=== PATIENT | female | born 1940 | race Caucasian/White ===

== ENCOUNTER 2017-01-26 19:51 | Emergency (ER) | payer OTHER ==
[2017-01-26 20:44] VITALS: BP 144/71
--- NOTE | 2017-01-26 21:49 | UC ---
Lower Extremity/Ankle HPI - HPI Summary HPI Summary: "RT ANKLE AND FOOT SWELLING SINCE STEPPING OFF A STEP STOOL 2 WKS AGO, TWISTING TYPE INJURY, NOT REALLY PAINFUL BUT MARKED STS LATERAL ANKLE AND TOP OF FOOT. " She is able to walk on it althought it is slightly painful no fevers or chills. Here with her . thinks she may have rolled her ankle as she fell. - History of Current Complaint Chief Complaint: UCLowerExtremity Stated Complaint: FALL-RT FOOT INJURY Time Seen by Provider: 01/26/17 20:48 - Allergies/Home Medications Allergies/Adverse Reactions: Allergies Allergy/AdvReac Type Severity Reaction Status Date / Time No Known Allergies Allergy Verified 01/26/17 20:34 Home Medications: Home Medications FLUoxetine CAP* [Prozac CAP*] 20 mg PO DAILY 01/26/17 [History Confirmed ] Gabapentin CAP(*) [Neurontin 300 CAP(*)] 300 mg PO BID 01/26/17 [History Confirmed 01/26/17] ValACYclovir (*) [Valtrex 500 mg (*)] 500 mg PO DAILY 01/26/17 [History Confirmed 01/26/17] amLODIPine TAB* [Norvasc 5 mg TAB*] 2.5 mg PO BEDTIME 01/26/17 [History Confirmed 01/26/17] PMH/Surg Hx/FS Hx/Imm Hx Previously Healthy: Yes Cardiovascular History: Hypertension GI/ History: Gastroesophageal Reflux Psychological History: Anxiety, Depression - Surgical History Surgical History: Yes Surgery Procedure, Year, and Place: SKIN CA -; APPENDECTOMY; TUBAL LIGATION; BASAL JOINT REPAIR- Rt HAND; LEFT knee - Family History Known Family History: Positive: Hypertension - Social History Alcohol Use: Rare Substance Use Type: None Smoking Status (MU): Never Smoked Tobacco - Immunization History Most Recent Influenza Vaccination: UTD 2016 Most Recent Tetanus Shot: UNK Most Recent Pneumonia Vaccination: UTD Review of Systems Constitutional: Negative Skin: Negative Eyes: Negative ENT: Negative Respiratory: Negative Cardiovascular: Negative Gastrointestinal: Negative Genitourinary: Negative Motor: Negative Neurovascular: Negative Musculoskeletal: Arthralgia, Edema Neurological: Negative Psychological: Negative All Other Systems Reviewed And Are Negative: Yes Physical Exam Triage Information Reviewed: Yes Appearance: Well-Appearing - very pleasant, No Pain Distress, Well-Nourished Vital Signs: Initial Vital Signs Temp 97.4 F 06/30/17 20:38 Pulse 72 01/26/17 20:38 Resp 18 01/26/17 20:38 BP 144/71 01/26/17 20:38 Pulse Ox 96 01/26/17 20:38 Vital Signs Reviewed: Yes Eye Exam: Normal ENT Exam: Normal ENT: Positive: Pharynx normal Neck exam: Normal Respiratory Exam: Normal Respiratory: Positive: Lungs clear, Normal breath sounds Cardiovascular Exam: Normal Cardiovascular: Positive: RRR, No Murmur, Pulses Normal Abdominal Exam: Normal Abdomen Description: Positive: Nontender, Soft Musculoskeletal: Positive: Other: - Right foot and ankle with moderate generalized swelling, more so in the lateral ankle. Good ROM, ambulates. no bruising. + 2 DP/PT b/l. CR brisk. Neurological Exam: Normal Psychological Exam: Normal Skin Exam: Normal Lower Extremity Course/Dx - Course Course Of Treatment: xray right foot and ankle. -Soft tissue swelling throughout although most prominent over the lateral. malleolus. Negative for fracture or malalignment at the ankle or foot. - Differential Dx/Diagnosis Differential Diagnosis/HQI/PQRI: Cellulitis, Contusion, Dislocation, Fracture ( Closed), Sprain, Strain, Tendonitis Provider Diagnoses: ankle sprain Discharge - Discharge Plan Condition: Stable Disposition: HOME Patient Education Materials: Ankle Sprain (ED) Referrals: Earl García DO [Primary Care Provider] - 1 Week Additional Instructions: Ice and rest. Jad wrap given today. good firm soled shoes.
--- NOTE | 2017-01-26 21:57 | RAD ---
Indication: Soft tissue swelling and pain lateral aspect RIGHT ankle and top of the foot following injury 2 weeks ago. Comparison: No relevant prior exams available on the [facility] PACS for comparison. Technique: AP, mortise, and lateral views RIGHT ankle. AP, lateral, and oblique views RIGHT foot. Report: Bone density appears decreased throughout. Negative for fracture or osteochondral lesion at the ankle or foot. Osteophytosis and moderate joint space narrowing and subchondral sclerosis at the first metatarsal phalangeal joint. Negative for additional arthropathic change at the foot or ankle. Diffuse soft tissue swelling most prominent over the lateral malleolus. IMPRESSION: Soft tissue swelling throughout although most prominent over the lateral malleolus. Negative for fracture or malalignment at the ankle or foot.
--- NOTE | 2017-01-26 21:57 | RAD ---
Indication: Soft tissue swelling and pain lateral aspect RIGHT ankle and top of the foot following injury 2 weeks ago. Comparison: No relevant prior exams available on the [facility] PACS for comparison. Technique: AP, mortise, and lateral views RIGHT ankle. AP, lateral, and oblique views RIGHT foot. Report: Bone density appears decreased throughout. Negative for fracture or osteochondral lesion at the ankle or foot. Osteophytosis and moderate joint space narrowing and subchondral sclerosis at the first metatarsal phalangeal joint. Negative for additional arthropathic change at the foot or ankle. Diffuse soft tissue swelling most prominent over the lateral malleolus. IMPRESSION: Soft tissue swelling throughout although most prominent over the lateral malleolus. Negative for fracture or malalignment at the ankle or foot.
== END 2017-01-26 22:19 | disposition home or self-care (01) ==
LOC: UCCORT 19:51
DX: S93.401A Sprain of unspecified ligament of right ankle, initial encounter (principal); X50.1XXA Overexertion from prolonged static or awkward postures, initial encounter
CPT/HCPCS: 99212; G0463

== ENCOUNTER 2018-07-20 10:20 | Emergency (ER) | payer OTHER ==
[2018-07-20 10:46] VITALS: BP 132/63
--- NOTE | 2018-07-20 11:24 | UC ---
Throat Pain/Nasal Scot HPI - HPI Summary HPI Summary: " Pt c/o ST X 2-3 days. Pt has had chronic cough X 4 years. Pt is currently under the care of patch sander, ENT, and GI specialists regarding her cough. - History of Current Complaint Chief Complaint: UCRespiratory Stated Complaint: SORE THROAT,COUGH Time Seen by Provider: 07/20/18 11:21 Hx Obtained From: Patient ?: No Onset/Duration: Gradual Onset, Lasting Days, Still Present Severity: Moderate Pain Intensity: 6 Cough: Nonproductive Associated Signs & Symptoms: Positive: Dysphagia - Epiglottits Risk Factors Epiglottis Risk Factors: Negative - Allergies/Home Medications Allergies/Adverse Reactions: Allergies Allergy/AdvReac Type Severity Reaction Status Date / Time No Known Allergies Allergy Verified 07/20/18 10:42 PMH/Surg Hx/FS Hx/Imm Hx Previously Healthy: Yes Respiratory History: COPD, Bronchitis - Surgical History Surgical History: Yes Surgery Procedure, Year, and Place: SKIN CA -; APPENDECTOMY; TUBAL LIGATION; BASAL JOINT REPAIR- Rt HAND; LEFT knee - Family History Known Family History: Positive: Hypertension - Social History Occupation: Retired Lives: With Family Alcohol Use: Rare Substance Use Type: None Smoking Status (MU): Former Smoker Length of Time of Smoking/Using Tobacco: ~1 PPD x 25 Years When Did the Patient Quit Smoking/Using Tobacco: ~1975 - Immunization History Most Recent Influenza Vaccination: UTD 2016 Most Recent Tetanus Shot: UNK Most Recent Pneumonia Vaccination: UTD Review of Systems All Other Systems Reviewed And Are Negative: Yes Constitutional: Positive: Fatigue Skin: Positive: Negative Eyes: Positive: Negative ENT: Positive: Sore Throat Respiratory: Positive: Cough Cardiovascular: Positive: Negative Gastrointestinal: Positive: Negative Genitourinary: Positive: Negative Motor: Positive: Negative Neurovascular: Positive: Negative Musculoskeletal: Positive: Negative Neurological: Positive: Negative Psychological: Positive: Negative Is Patient Immunocompromised?: No Physical Exam Triage Information Reviewed: Yes Appearance: Well-Appearing Vital Signs: Initial Vital Signs Temp 98.6 F 07/20/18 10:39 Pulse 80 07/20/18 10:39 Resp 24 07/20/18 10:39 BP 132/63 07/20/18 10:39 Pulse Ox 96 07/20/18 10:39 Vital Signs Reviewed: No Eye Exam: Normal ENT: Positive: Nasal congestion Dental Exam: Normal Neck exam: Normal Respiratory: Positive: Decreased breath sounds Cardiovascular Exam: Normal Musculoskeletal Exam: Normal Neurological Exam: Normal Psychological Exam: Normal Skin Exam: Normal Throat Pain/Nasal Course/Dx - Differential Dx/Diagnosis Differential Diagnosis/HQI/PQRI: Influenza, Pharyngitis, URI Discharge - Discharge Plan Referrals: Earl García DO [Primary Care Provider] -
--- NOTE | 2018-07-20 12:14 | UC ---
Throat Pain/Nasal Scot HPI - HPI Summary HPI Summary: " Pt c/o ST X 2-3 days. Pt has had chronic cough X 4 years. Pt is currently under the care of engineering officer, ENT, and GI specialists regarding her cough. - History of Current Complaint Chief Complaint: UCRespiratory Stated Complaint: SORE THROAT,COUGH Time Seen by Provider: 07/20/18 11:21 Hx Obtained From: Patient ?: No Onset/Duration: Gradual Onset, Lasting Days, Still Present Severity: Moderate Pain Intensity: 6 Cough: Nonproductive Associated Signs & Symptoms: Positive: Dysphagia - Epiglottits Risk Factors Epiglottis Risk Factors: Negative - Allergies/Home Medications Allergies/Adverse Reactions: Allergies Allergy/AdvReac Type Severity Reaction Status Date / Time No Known Allergies Allergy Verified 07/20/18 10:42 Home Medications: Home Medications Atorvastatin* [Lipitor 10 MG*] 1 tab QPM 07/20/18 [History Confirmed 07/20/18] FLUoxetine CAP* [Prozac CAP*] 40 mg QAM 07/20/18 [History Confirmed 07/20/18] Fluticasone/Vilanterol [Breo Ellipta 200-25 Mcg INH] 1 puff DAILY 07/20/18 [ History Confirmed 07/20/18] Gabapentin CAP(*) [Neurontin 100 mg CAP(*)] 1 tab BID 07/20/18 [History Confirmed 07/20/18] Pantoprazole Sodium 40 mg DAILY 07/20/18 [History Confirmed 07/20/18] ValACYclovir (*) [Valtrex 500 mg (*)] 1 tab DAILY 07/20/18 [History Confirmed ] amLODIPine TAB* [Norvasc 5 mg TAB*] 2.5 mg QPM 07/20/18 [History Confirmed 07/20] PMH/Surg Hx/FS Hx/Imm Hx Previously Healthy: Yes Respiratory History: COPD, Bronchitis - Surgical History Surgical History: Yes Surgery Procedure, Year, and Place: SKIN CA -; APPENDECTOMY; TUBAL LIGATION; BASAL JOINT REPAIR- Rt HAND; LEFT knee - Family History Known Family History: Positive: Hypertension - Social History Occupation: Retired Lives: With Family Alcohol Use: Rare Substance Use Type: None Smoking Status (MU): Former Smoker Length of Time of Smoking/Using Tobacco: ~1 PPD x 25 Years When Did the Patient Quit Smoking/Using Tobacco: ~1975 - Immunization History Most Recent Influenza Vaccination: UTD 2016 Most Recent Tetanus Shot: UNK Most Recent Pneumonia Vaccination: UTD Review of Systems All Other Systems Reviewed And Are Negative: Yes Constitutional: Positive: Fatigue Skin: Positive: Negative Eyes: Positive: Negative ENT: Positive: Sore Throat Respiratory: Positive: Cough Cardiovascular: Positive: Negative Gastrointestinal: Positive: Negative Genitourinary: Positive: Negative Motor: Positive: Negative Neurovascular: Positive: Negative Musculoskeletal: Positive: Negative Neurological: Positive: Negative Psychological: Positive: Negative Physical Exam Triage Information Reviewed: Yes Appearance: Well-Appearing Vital Signs: Initial Vital Signs Temp 98.6 F 07/20/18 10:39 Pulse 80 07/20/18 10:39 Resp 24 07/20/18 10:39 BP 132/63 07/20/18 10:39 Pulse Ox 96 07/20/18 10:39 Vital Signs Reviewed: No Eye Exam: Normal Dental Exam: Normal Neck exam: Normal Respiratory: Positive: Decreased breath sounds Cardiovascular Exam: Normal Musculoskeletal Exam: Normal Neurological Exam: Normal Psychological Exam: Normal Skin Exam: Normal Diagnostics - Laboratory Diagnostic Studies Completed/Ordered: RAPID STREP: NEGATIVE Throat Pain/Nasal Course/Dx - Differential Dx/Diagnosis Differential Diagnosis/HQI/PQRI: Influenza, Pharyngitis, URI Provider Diagnosis: Viral syndrome, Sore throat (viral) Discharge - Sign-Out/Discharge Documenting (check all that apply): Patient Departure All imaging exams completed and their final reports reviewed: No Studies - Discharge Plan Condition: Stable Disposition: HOME Patient Education Materials: Viral Syndrome (ED), Pharyngitis (ED) Referrals: Earl García DO [Primary Care Provider] - As Soon As Possible Additional Instructions: PLEASE FOLLOW UP WITH YOUR PCP, ENT, MARBLE FINISHER AND INVESTIGATIVE AGENT NEEDED. YOUR RAPID STREP TEST WAS NEGATIVE AT TODAY'S VISIT. - Billing Disposition and Condition Condition: STABLE Disposition: Home - Attestation Statements Provider Attestation: I was available for consult. This patient was seen by the AHMET. The patient was not presented to, seen by, or examined by me. EK
== END 2018-07-20 12:25 | disposition home or self-care (01) ==
LOC: UCCORT 10:20
DX: B34.9 Viral infection, unspecified (principal); J02.8 Acute pharyngitis due to other specified organisms; Z87.891 Personal history of nicotine dependence
CPT/HCPCS: 87651; 99211; G0463

== ENCOUNTER 2018-09-18 18:17 | Emergency (ER) | payer MEDICARE, OTHER ==
--- OUTSIDE RECORDS SUMMARY | 2018-09-18 18:56 | XMS REPORT | Continuity of Care Document ---
:1940 External Reference #:[id number] Author Name Ronn Shields MD Address [address] [place] [address] Care Team Providers Name Role Phone David Bradshaw MD Care Team Information Rail Car Driver Unavailable Earl García, Primary Care Physician Unavailable Payers Date Identification Numbers Payment Provider Subscriber Policy Number: [id number] Alona Jaquez PayID: [id number] [address] [address] [place] [address] Advance Directives Description No Information Available Problems Date Description Provider Status Onset: 09/10/2018 Essential hypertension Ronn Shields MD Active Onset: 09/10/2018 Pure hypercholesterolemia Ronn Shields MD Active Onset: 09/10/2018 Uncomplicated severe persistent Ronn Shields MD Active asthma Onset: 09/10/2018 Allergic rhinitis Ronn Shields MD Active Onset: 09/10/2018 Allergic rhinitis due to pollen Ronn Shields MD Active Family History Description No Information Available Social History Type Date Description Comments Sex Unknown Smoke-Free Home is smoke-free Tobacco Use Start: Unknown Patient smoking status is unknown Smoking Status Reviewed: 09/10/18 Patient smoking status is unknown Allergies, Adverse Reactions, Alerts Date Description Reaction Status Severity Comments 09/10/2018 Lisinopril Active Medications Medication Date Status Form Strength Qnty SIG Indications Ordering Provider Fluticasone 09/10 Active Suspension 50mcg/Act 16gm spray 1 J30.1 Christopher sprays in Melinda Shields MD each nostril bid Azelastine 09/10 Active Solution 137mcg/Sp 30ml one spray J30.1 Christopher HCL (Nasal) /2018 ray each Melinda Shields MD nostril twice daily Asmanex HFA 09/10 Active Aerosol 200mcg/Ac 13gm 2 puff J30.1 oph t twice a day Melinda Shields MD Ventolin HFA 09/10 Active Aerosol 108(90Bas 16gm inhale 2 J30.1 oph e) puffs by Melinda Shields MD mcg/Act inhalation route every 4 hours as needed Xyzal Allergy 09/10 Active Tablets 5mg 30tab take 1 J30.1 Christopher 24HR s tablet (5 Melinda Shields MD mg) by oral route once daily as needed Azithromycin Active Tablets 250mg take 2 Unknown /0000 tablets by mouth on day 1 in one dose then 1 tablet on days 2 through 5 Amlodipine Active Tablets 2.5mg [place], Besylate /0000 WILFREDO Veag Fluoxetine Active Capsules 40mg Carlene, HCL /0000 WILFREDO Vega Cheratussin Active Syrup 100-10mg/ take 5 Unknown ac /0000 5ML milliliters by mouth every 6 hours if needed for cough MDD 20MLS Valacyclovir Active Tablets 500mg take 1 Unknown HCL /0000 tablet by mouth once daily Ventolin HFA Active Aerosol 108(90Bas [place], /0000 e) WILFREDO Vega mcg/Act Albuterol Active Nebulizer (2.5mg/3M inhale Unknown Sulfate /0000 L) 0.083% contents of 1 vial in nebulizer every 4 to 6 hours if needed for wheezing Breo Ellipta Active Aerosol 200-25mcg inhale one Unknown /0000 /Inh puff once a day Fluticasone Active Suspension 50mcg/Act spray 2 Unknown Propionate /0000 sprays in each nostril daily Ipratropium Active Solution 0.06% Unknown [place] /0000 Azelastine Active Solution 0.1% 2 sprays Unknown HCL (Nasal) /0000 each nostril twice a day as needed Pantoprazole Active Tablets DR 40mg Unknown Sodium /0000 Atorvastatin Active Tablets 10mg Unknown Calcium /0000 Fluoxetine Active Capsules 40mg Unknown HCL /0000 Levofloxacin 00/00 Hx Tablets 750mg take 1 Unknown /0000 tablet by - mouth once 09/10 daily for 5 days Immunizations Description No Information Available Vital Signs Description No Information Available Results Test Date Facility Test Result H/L Range Note .CBC Auto Diff 09/10/2018 [facility]Other <pending> [address] [facility] [place] [address] [phone] Laboratory test 09/10/2018 [facility] Ige Total <pending> finding [address] [place] [address] [phone] Order 09/10/2018 [facility] Inhaler <pending> Training-Patient Demonstrates Competency Nitric Oxide <pending> PFT Supplies <pending> PFT With Bronchodilator <pending> Skin Test Seasonal and Environmental <pending> Procedures Date Code Description Status 09/10/2018 25779 Nitric Oxide Gas Determination Completed 09/10/2018 48879 Allergy Tests Percutaneous W/ Allergenic Extracts Completed 09/10/2018 05755 Demonstration/Eval,Of Patient Utilization Of Completed Aerosol,Nebulizer 09/10/2018 22824 Bronchodilation Responsiveness Spirometry Pre/Post Completed Bronchodil Adm Encounters Description No Information Available Plan of Treatment 09/10/2018 - Ronn Shields MDJ30.1 Allergic rhinitis due to pollenNew Medication:Fluticasone Propionate 50 mcg/Act - spray 1 sprays in each nostril bidAzelastine HCL (Nasal) 137 mcg/[place] - one spray each nostril twice dailyAsmanex HFA 200 mcg/Act - 2 puff twice a dayVentolin HFA 108(90 Base) mcg/ Act - inhale 2 puffs by inhalation route every 4 hours as neededXyzal Allergy 24HR 5 mg - take 1 tablet (5 mg) by oral route once daily as ixgqobC74.89 Other allergic dptriucxP67.50 Severe persistent asthma, uncomplicated
--- OUTSIDE RECORDS SUMMARY | 2018-09-18 18:56 | XMS REPORT | Continuity of Care Document ---
:1940 External Reference #:[id number] Author Name Brianna Elizabeth Care Team Providers Name Role Phone Earl García, Care Team Information Sagger Preparer Unavailable Earl García, Primary Care Physician Unavailable Payers Date Identification Numbers Payment Provider Subscriber Policy Number: [id number] Javierna Nelly Jaquez PayID: [id number] [address] [address] [place] [address] Advance Directives Description No Information Available Problems Description No Information Family History Description No Information Available Social History Type Date Description Comments Sex Unknown Allergies, Adverse Reactions, Alerts Date Description Reaction Status Severity Comments 09/10/2018 Lisinopril Active Medications Medication Date Status Form Strength Qnty SIG Indications Ordering Provider Azithromycin / Active Tablets 250mg take 2 Unknown 0000 tablets by mouth on day 1 in one dose then 1 tablet on days 2 through 5 Amlodipine / Active Tablets 2.5mg [place], Besylate 0000 WILFREDO Vega Fluoxetine HCL / Active Capsules 40mg Carlene, 0000 WILFREDO Vega Cheratussin ac / Active Syrup 100-10mg/ take 5 Unknown 0000 5ML milliliters by mouth every 6 hours if needed for cough MDD 20MLS Valacyclovir / Active Tablets 500mg take 1 Unknown HCL 0000 tablet by mouth once daily Ventolin HFA / Active Aerosol 108(90Bas Carlene, 0000 e) urban Vega/Riya VILLALOBOS Albuterol / Active Nebulizer (2.5mg/3M inhale Unknown Sulfate 0000 L) 0.083% contents of 1 vial in nebulizer every 4 to 6 hours if needed for wheezing Breo Ellipta / Active Aerosol 200-25mcg inhale one Unknown 0000 /Inh puff once a day Fluticasone / Active Suspension 50mcg/Act spray 2 Unknown Propionate 0000 sprays in each nostril daily Ipratropium / Active Solution 0.06% Unknown [place] 0000 Azelastine HCL / Active Solution 0.1% 2 sprays Unknown (Nasal) 0000 each nostril twice a day as needed Pantoprazole / Active Tablets DR 40mg Unknown Sodium 0000 Atorvastatin / Active Tablets 10mg Unknown Calcium 0000 Fluoxetine HCL / Active Capsules 40mg Unknown 0000 Levofloxacin / Hx Tablets 750mg take 1 Unknown 0000 - tablet by 09/10/ mouth once 2019 daily for 5 days Immunizations Description No Information Available Vital Signs Description No Information Available Results Description No Information Available Procedures Description No Information Available Encounters Description No Information Available Plan of Treatment No Information Available
--- OUTSIDE RECORDS SUMMARY | 2018-09-18 18:59 | XMS REPORT | Continuity of Care Document ---
:1940 External Reference #:[id number] Author Name Crispin Dhillon MD Address [address] [place] [address] Care Team Providers Name Role Phone Fredy Hill MD Care Team Information [employer] Unavailable Earl García DO Primary Care Physician Unavailable Payers Type Date Identification Numbers Payment Provider Subscriber Policy Number: [id number] [employer] Nelly Jaquez PayID: [id number] [address] [place] [address] Effective: 2008 Policy Number: [id number] [facility] Nelly Jaquez Expires: 2018 Group Number: [id number] [address] PayID: [id number] [place] [address] Expires: 2008 Policy Number: [id number] [facility] [place]ID: [id number] [address] [place] [address] Advance Directives Description No Information Available Problems Description No Information Family History Date Family Member(s) Problem(s) Comments Father Colon Cancer Father due to Cancer () Father due to Heart Disease () Mother Pancreatic Cancer Mother due to Cancer () Mother due to Heart Disease () Social History Type Date Description Comments Sex Unknown Marital Status Lives With Alone Home Environment Lives Alone Diet Patient follows no dietary restrictions Occupation Retired Work Status Retired ADL's/IADL's Independent with all ADL's Tobacco Use Start: Unknown End: Quit 1974 Unknown ETOH Use Denies alcohol use Recreational Drug Use Never Used Drugs Tobacco Use Start: Unknown End: Patient is a former smoker Unknown Smoking Status Reviewed: 08/28/18 Patient is a former smoker Exercise Type/Frequency Does not exercise Allergies, Adverse Reactions, Alerts Description No Known Drug Allergies Medications Medication Date Status Form Strength Qnty SIG Indications Ordering Provider Gabapentin 08/28 Active Capsules 100mg 180ca take 3 J41.0 Kheti, ps tablets twice MD Crispin a day. Miralax 04/24 Active Powder 3350NF 1020u 1 tablespoon Juan /2017 nits with large , Rey, glass of water every day Fluoxetine HCL Active Tablets 20mg 1 by mouth Unknown /0000 every day before meal Amlodipine Active Tablets 2.5mg 1 by mouth Unknown Besylate / every day Valacyclovir Active Tablets 500mg 1 by mouth Unknown HCL /0000 every day Fish Oil Active Capsules 1200mg 1 po daily Unknown Maximum /0000 Strength Garlic Oil Active Capsules 500mg 1 po daily Unknown /0000 Multi Active Chewtabs 1mg 1 by mouth Unknown Vitamin/Fluori /0000 every day de Vitamin E Active Capsules 100Unit 1 po daily Unknown / Vitamin C Active Capsules 500-400mg 1 by mouth Unknown /0000 -Unit every day W/Vitamin E Sucralfate Active Tablets 1gm 1 by mouth Unknown /0000 four times a day prn Atorvastatin Active Tablets 10mg 1 by mouth Unknown Calcium /0000 every day Vitamin B 12 Active Lozenges 100mcg 1 by mouth Unknown /0000 every day Vitamin D Active Tablets 1000Unit 1 by mouth Unknown (Cholecalcifer /0000 every day ol) Loratadine Active Tablets 10mg 1 by mouth Unknown /0000 every day Pantoprazole Active Tablets DR 40mg 1 by mouth Unknown Sodium /0000 bid Triamcinolone Active Cream 0.1% apply to Unknown Acetonide /0000 affected area On Chest twice a day For No Longer Than 10 Days Breo Ellipta Active Aerosol 200-25mcg 1puff daily Dah, /0000 /Inh Lux GAMBINO Ipratropium Active Solution 0.06% instill 2 Unknown [place] /0000 sprays into each nostril once daily Montelukast Active Tablets 10mg one daily Unknown Sodium /0000 Azelastine HCL Active Solution 0.1% instill 2 Unknown (Nasal) /0000 sprays into each nostril daily Neurontin 11/08 Hx Capsules 100mg 120ca Take 2 Kheti, /2018 ps tablets in MD Crispin - the morning 08/28 and 2 in the evning. Advair Diskus 08/16 Hx Aerosol 500-50mcg 60uni take 1 puff J82 /Dose ts twice daily. MD Crispin rinse mouth after use. Guaifenesin-Co 08/16 Hx Solution 100-10mg/ 118ml take 5ml J82 5ML every 6 hours MD Crispin as needed for cough. Dulcolax 04/[address] 5mg 7tabs 1 tab by Juan mouth every , Rey, day westley GREWAL night as needed Induced Sputum 09/04 Hx Please check J41.0 Tono sputum cell MD Crispin count with differential including eosinophil percentage. Neomycin/Polym 08/02 Hx Suspension 3.5-99648 5ml 1 drop both H04.123 dash Griffith/Dexametha /2016 -0.1 eyes three MD Rey sone - times daily 08/30 for 7 days Flovent Diskus 05/10 Hx Aerosol 100mcg/Bl 180un 1 puff twice J41.0 ist its a day MD Crispin Claritin 05/10 Hx Tablets 10mg 30tab take 1 tablet J30.89 s daily prn MD Crispin - 11/08 Gabapentin 05/26 Hx Capsules 300mg 180ca take 1 R05 ps capsule twice MD Crispin - daily. 11/08 Simvastatin Hx Tablets 10mg 1 by mouth Unknown /0000 every day Clemastine Hx Tablets 2.68mg 1 by mouth Unknown Fumarate /0000 daily Famvir Hx Tablets 500mg 1 by mouth Unknown /0000 three times a day Vitamin B 12 Hx Lozenges 100mcg 1 by mouth Unknown /0000 every day Vitamin B1 Hx Tablets 100mg 1 by mouth Unknown /0000 every day Advair Diskus Hx Aerosol 100-50mcg inhale one Unknown /0000 /Dose puff by mouth twice a day Oxycodone HCL Hx Tablets 10mg 1 every 4 h Unknown /0000 by mouth as needed pain Xarelto Hx Tablets 10mg 1 by mouth Unknown daily Omeprazole Hx Capsules DR 40mg 90cap take 1 tablet Kheti, s once daily. MD Crispin Dymista Hx Suspension 137-50mcg Unknown /Act Furosemide Hx Tablets 20mg 1 by mouth Unknown every day as - needed 04/30 Buspirone HCL Hx Tablets 7.5mg García, DO Earl Prednisone Hx Tablets 10mg Take 4 Unknown Tablets By Mouth Daily For 3 Days, 3 Tablets Daily For 3 D... (Refer To Prescription Notes). Azithromycin Hx Tablets 250mg take 2 Unknown tablets by mouth on day 1 in one dose then 1 tablet on days 2 through 5 Medications Administered in Office Medication Date Status Form Strength Qnty SIG Indications Ordering Provider Depomedrol Administered Injection Jae, 40mg/1cc Eliot Underwood MD (methylprednis olone acetate) Depomedrol Administered Injection Jae, 40mg/1cc 008 Edilia Underwood MD (methylprednis olone acetate) Depo-Medrol Administered Injection Jae, 20mg 007 Edilia Underwood MD Depomedrol Administered Injection Jae, 40mg/1cc Ady Underwood MD (methylprednis olone acetate) Immunizations Description No Information Available Vital Signs Date Vital Result Comment 08/28/2018 3:42pm BP Systolic Sitting Left Arm 132 mmHg BP Diastolic Sitting Left Arm 80 mmHg Body Temperature 98.0 F Heart Rate 83 /min Respiratory Rate 18 /min Height 63 inches 5'3" Weight 186.00 lb BMI (Body Mass Index) 32.9 kg/m2 BSA (Body Surface Area) 1.87 m2 [place] body weight in kilograms 52 kg O2 % BldC Oximetry 94 % 07/24/2018 11:02am BP Systolic Sitting Left Arm 132 mmHg BP Diastolic Sitting Left Arm 84 mmHg Heart Rate 74 /min Respiratory Rate 16 /min Height 63 inches 5'3" Weight 183.00 lb BMI (Body Mass Index) 32.4 kg/m2 BSA (Body Surface Area) 1.86 m2 [place] body weight in kilograms 52 kg O2 Saturation Level with Exercise 93 % 04/30/2018 4:03pm BP Systolic 121 mmHg BP Diastolic 79 mmHg Heart Rate 80 /min Height 63 inches 5'3" Weight 180.00 lb BMI (Body Mass Index) 31.9 kg/m2 BSA (Body Surface Area) 1.85 m2 [place] body weight in kilograms 52 kg O2 % BldC Oximetry 95 % 04/09/2018 8:42am BP Systolic Sitting Left Arm 112 mmHg BP Diastolic Sitting Left Arm 74 mmHg Heart Rate 64 /min Respiratory Rate 18 /min Height 63 inches 5'3" Weight 182.00 lb BMI (Body Mass Index) 32.2 kg/m2 BSA (Body Surface Area) 1.86 m2 [place] body weight in kilograms 52 kg O2 % BldC Oximetry 95 % Ora 03/21/2018 1:09pm BP Systolic Sitting Left Arm 120 mmHg BP Diastolic Sitting Left Arm 72 mmHg Heart Rate 74 /min Respiratory Rate 16 /min Height 63 inches 5'3" Weight 178.00 lb BMI (Body Mass Index) 31.5 kg/m2 BSA (Body Surface Area) 1.84 m2 [place] body weight in kilograms 52 kg 11/08/2017 2:31pm BP Systolic Sitting Left Arm 146 mmHg BP Diastolic Sitting Left Arm 82 mmHg Heart Rate 80 /min Respiratory Rate 16 /min Height 63 inches 5'3" Weight 183.00 lb BMI (Body Mass Index) 32.4 kg/m2 BSA (Body Surface Area) 1.86 m2 [place] body weight in kilograms 52 kg O2 % BldC Oximetry 94 % 08/16/2017 3:40pm BP Systolic Sitting Right Arm 102 mmHg BP Diastolic Sitting Right Arm 70 mmHg Heart Rate 90 /min Respiratory Rate 22 /min Height 63 inches 5'3" Weight 180.00 lb BMI (Body Mass Index) 31.9 kg/m2 BSA (Body Surface Area) 1.85 m2 [place] body weight in kilograms 52 kg O2 % BldC Oximetry 98 % room air 05/08/2017 2:23pm BP Systolic Sitting Left Arm 96 mmHg BP Diastolic Sitting Left Arm 60 mmHg Heart Rate 81 /min Respiratory Rate 16 /min Height 63 inches 5'3" Weight 180.00 lb BMI (Body Mass Index) 31.9 kg/m2 BSA (Body Surface Area) 1.85 m2 [place] body weight in kilograms 52 kg O2 % BldC Oximetry 96 % Ora 12/28/2016 2:26pm BP Systolic Sitting Left Arm 130 mmHg BP Diastolic Sitting Left Arm 82 mmHg Heart Rate 69 /min Respiratory Rate 16 /min Height 63 inches 5'3" Weight 179.00 lb BMI (Body Mass Index) 31.7 kg/m2 BSA (Body Surface Area) 1.84 m2 [place] body weight in kilograms 52 kg O2 % BldC Oximetry 95 % Room air 08/31/2016 3:57pm BP Systolic Sitting Left Arm 124 mmHg BP Diastolic Sitting Left Arm 79 mmHg Heart Rate 76 /min Respiratory Rate 16 /min Height 63 inches 5'3" Weight 183.00 lb BMI (Body Mass Index) 32.4 kg/m2 BSA (Body Surface Area) 1.86 m2 O2 % BldC Oximetry 96 % 05/10/2016 1:48pm BP Systolic Sitting Left Arm 132 mmHg BP Diastolic Sitting Left Arm 90 mmHg Heart Rate 79 /min Height 63 inches 5'3" Weight 183.00 lb BMI (Body Mass Index) 32.4 kg/m2 BSA (Body Surface Area) 1.86 m2 O2 % BldC Oximetry 94 % 11/29/2015 2:56pm BP Systolic Sitting Right Arm 112 mmHg BP Diastolic Sitting Right Arm 70 mmHg Heart Rate 71 /min Respiratory Rate 16 /min Height 63 inches 5'3" Weight 186.00 lb BMI (Body Mass Index) 32.9 kg/m2 BSA (Body Surface Area) 1.87 m2 O2 % BldC Oximetry 98 % 06/29/2015 1:41pm BP Systolic Sitting Left Arm 112 mmHg BP Diastolic Sitting Left Arm 84 mmHg Heart Rate 89 /min Respiratory Rate 18 /min Height 63 inches 5'3" Weight 184.00 lb BMI (Body Mass Index) 32.6 kg/m2 BSA (Body Surface Area) 1.87 m2 O2 % BldC Oximetry 95 % 05/26/2015 12:55pm BP Systolic Sitting Left Arm 112 mmHg BP Diastolic Sitting Left Arm 72 mmHg Heart Rate 75 /min Respiratory Rate 18 /min Height 62 inches 5'2" Weight 186.00 lb BMI (Body Mass Index) 34.0 kg/m2 BSA (Body Surface Area) 1.85 m2 O2 % BldC Oximetry 95 % Results Test Date Facility Test Result H/L Range Note WBC # Bld Auto N2N/CCD Import WBC # Bld Auto 16.7 High 3.1- 10.7 8 Serum sodium N2N/CCD Import Serum sodium 138 136-145 measurement 8 measurement Serum or plasma N2N/CCD Import Serum or plasma 25 High 7-18 urea nitrogen 8 urea nitrogen measurement measurement (mass/vo (mass/volume) Serum or plasma N2N/CCD Import Serum or plasma 84 74-106 glucose 8 glucose measurement measurement (mass/volume) (mass/volume) Serum or plasma N2N/CCD Import Serum or plasma 0.7 0.6-1.3 creatinine 8 creatinine measurement measurement (mass/volum (mass/volume) Serum or plasma N2N/CCD Import Serum or plasma 8.3 Low 8.5- 10.1 calcium 8 calcium measurement measurement (mass/volume) (mass/volume) Serum carbon N2N/CCD Import Serum carbon 33 High 21-32 dioxide 8 dioxide measurement measurement RDW RBC Auto-Rto N2N/CCD Import RDW RBC Auto-Rto 14.2 11.7- 14.4 8 Potassium N2N/CCD Import Potassium 3.9 3.5-5.1 SerPl-sCnc 8 SerPl-sCnc Chloride N2N/CCD Import Chloride 102 98-107 SerPl-sCnc 8 SerPl-sCnc Blood hemoglobin N2N/CCD Import Blood hemoglobin 12.7 11.6- 15.8 measurement 8 measurement (mass/volume) (mass/volume) Blood N2N/CCD Import Blood 4.00 3.90-5.40 erythrocytes 8 erythrocytes automated count automated count (number/volume) (number/volume) BUN/Creat SerPl N2N/CCD Import BUN/Creat SerPl 35.7 8 Automated N2N/CCD Import Automated 98.8 80.9-99.0 erythrocyte mean 8 erythrocyte mean corpuscular corpuscular volume volume Automated N2N/CCD Import Automated 32.2 30.8-34.3 erythrocyte mean 8 erythrocyte mean corpuscular corpuscular hemoglobin hemoglobin concentration measurement (mass/volume) Automated N2N/CCD Import Automated 31.8 25.9-32.7 erythrocyte mean 8 erythrocyte mean corpuscular corpuscular hemoglobin hemoglobin (mass per erythrocyte) CBC [facility] White Blood Count 16.7 K/uL High 3.1-10.7 1 8 [address] [place], [place] [address] [phone] Red Blood Count 4.00 M/uL N 3.90-5.40 Hemoglobin 12.7 gm/dL N 11.6-15.8 Hematocrit 39.5 % N 36.0-46.1 Mean Cell Volume 98.8 fl N 80.9-99.0 Mean Corpuscular HGB 31.8 pg N 25.9-32.7 Mean Corpuscular HGB Conc 32.2 g/dL N 30.8-34.3 Platelet Count 384 K/uL High 155-360 Red Cell Distri Width %CV 14.2 % N 11.7-14.4 Mean Platelet Volume 8.9 fL N 8.9-12.4 Basic Metabolic Panel 08/11/2017 [facility] Glucose 84 mg/dL N 74-106 [address] [place], [place] [id number] [phone] BUN 25 mg/dL High 7-18 Creatinine 0.7 mg/dL N 0.6-1.3 Glom Filtration Rate, Estimate >60 mL/min >60 If >60 mL/min >60 2 BUN/Creat 35.7 ratio Sodium 138 mmol/L N 136-145 Potassium 3.9 mmol/L N 3.5-5.1 Chloride 102 mmol/L N 98-107 Carbon Dioxide 33 mmol/L High 21-32 Anion Gap 3 mEq/L Low 8-16 Calcium 8.3 mg/dL Low 8.5-10.1 Automated blood 08/11/2017 N2N/CCD Import Automated blood 8.9 8.9-12.4 platelet mean platelet mean volume measurement volume measurement Automated blood 08/11/2017 N2N/CCD Import Automated blood 384 High 155- 360 platelet count platelet count Automated blood 08/11/2017 N2N/CCD Import Automated blood 39.5 36.0- 46.1 hematocrit (volume hematocrit fraction) (volume fraction) Anion Gap 08/11/2017 N2N/CCD Import Anion Gap 3 Low 8-16 SerPl-sCnc SerPl-sCnc Basic Metabolic 08/10/2017 [facility] Glucose 109 mg/dL High 74-106 Panel [address] [place] [address] [phone] BUN 24 mg/dL High 7-18 Creatinine 0.8 mg/dL N 0.6-1.3 Glom Filtration Rate, Estimate >60 mL/min >60 If >60 mL/min >60 3 BUN/Creat 30.0 ratio Sodium 142 mmol/L N 136-145 Potassium 4.5 mmol/L 3.5-5.1 Chloride 104 mmol/L N 98-107 Carbon Dioxide 32 mmol/L N 21-32 Anion Gap 6 mEq/L Low 8-16 Calcium 8.3 mg/dL Low 8.5-10.1 CBC 08/10/2017 [facility] White Blood Count 15.4 K/uL High 3.1-10.7 [address] [place] [address] [phone] Red Blood Count 3.81 M/uL Low 3.90-5.40 Hemoglobin 12.0 gm/dL N 11.6-15.8 Hematocrit 37.5 % 36.0-46.1 Mean Cell Volume 98.4 fl N 80.9-99.0 Mean Corpuscular HGB 31.5 pg N 25.9-32.7 Mean Corpuscular HGB Conc 32.0 g/dL N 30.8-34.3 Platelet Count 374 K/uL High 155-360 Red Cell Distri Width %CV 14.3 % N 11.7-14.4 Mean Platelet Volume 9.0 fL N 8.9-12.4 Unloinc 08/08/2017 N2N/CCD Import Unloinc See Note 4 RDW RBC Auto 08/08/2017 N2N/CCD Import RDW RBC Auto 50.4 High 3-47 Neutrophils/leuk 08/08/2017 N2N/CCD Import Neutrophils/marisa 77.3 High 40.4 -72. NFr Bld Auto k NFr Bld Auto 8 Basic Metabolic 08/08/2017 [facility] Glucose 136 mg/dL High 74-106 Panel [address] [place] [address] [phone] BUN 26 mg/dL High 7-18 Creatinine 0.9 mg/dL N 0.6-1.3 Glom Filtration Rate, Estimate >60 mL/min >60 If >60 mL/min >60 5 BUN/Creat 28.8 ratio Sodium 140 mmol/L N 136-145 Potassium 3.6 mmol/L N 3.5-5.1 Chloride 103 mmol/L N 98-107 Carbon Dioxide 27 mmol/L N 21-32 Anion Gap 10 mEq/L N 8-16 Calcium 8.6 mg/dL N 8.5-10.1 Automated blood 08/08/2017 N2N/CCD Import Automated blood 0.01 0.0-0.1 basophil count basophil count (count/volume) (count/volume) Automated blood 08/08/2017 N2N/CCD Import Automated blood 0.00 0.0-0.5 eosinophil count eosinophil count Automated blood 08/08/2017 N2N/CCD Import Automated blood 1.76 1.0-4.0 lymphocyte count lymphocyte count (number/volume) (number/volume) Basophils/leuk NFr 08/08/2017 N2N/CCD Import Basophils/leuk NFr 0.1 0.0- 1.1 Bld Auto Bld Auto Blood monocytes 08/08/2017 N2N/CCD Import Blood monocytes 1.83 High 0.3- 0.9 automated count automated count (number/volume) (number/volume) Neutrophils # Bld 08/08/2017 N2N/CCD Import Neutrophils # Bld 12.25 High 1.8-7.0 Auto Auto Monocytes/leuk NFr 08/08/2017 N2N/CCD Import Monocytes/leuk NFr 11.5 4.3 -13.2 Bld Auto Bld Auto Lymphocytes/leuk 08/08/2017 N2N/CCD Import Lymphocytes/leuk 11.1 Low 20.0 -42.0 NFr Bld Auto NFr Bld Auto Eosinophil/leuk NFr 08/08/2017 N2N/CCD Import Eosinophil/leuk 0.0 0.0- 6.6 Bld Auto NFr Bld Auto CBC 08/07/2017 [facility] White Blood Count 16.9 High 3.1-10.[address] K/[place] [address] [phone] Red Blood Count 4.23 M/uL N 3.90-5.40 Hemoglobin 13.3 gm/dL N 11.6-15.8 Hematocrit 41.6 % 36.0-46.1 Mean Cell Volume 98.3 fl N 80.9-99.0 Mean Corpuscular HGB 31.4 pg N 25.9-32.7 Mean Corpuscular HGB Conc 32.0 g/dL N 30.8-34.3 Platelet Count 396 K/uL High 155-360 Red Cell Distri Width %CV 14.5 % High 11.7-14.4 Mean Platelet Volume 9.7 fL N 8.9-12.4 Basic Metabolic Panel 08/07/2017 [facility] Glucose 175 mg/dL High 74-[address] [place], [place] [id number] [phone] BUN 23 mg/dL High 7-18 Creatinine 1.1 mg/dL N 0.6-1.3 Glom Filtration Rate, Estimate 51 mL/min >60 If >60 mL/min >60 6 BUN/Creat 20.9 ratio Sodium 141 mmol/L N 136-145 Potassium 3.6 mmol/L N 3.5-5.1 Chloride 104 mmol/L N 98-107 Carbon Dioxide 25 mmol/L N 21-32 Anion Gap 12 mEq/L N 8-16 Calcium 9.3 mg/dL N 8.5-10.1 Pertussis PCR 08/06/2017 [facility] Bordetella Negative Negative [address] Pertussis Dna [place], [place] [id number] [phone] Bordetella parapertussis Dna Negative Negative 7 Bordetella 08/06/2017 N2N/CCD Import Bordetella Negative Negative parapertussis Dna parapertussis assay by PCR Dna assay by PCR Bordetella 08/06/2017 N2N/CCD Import Bordetella Negative Negative pertussis pertussis detection by PCR detection by PCR Bordetella 08/06/2017 [facility] B. Pertussis IgG 2.25 index High 0.00-0.94 8 Pertussis,Igg, QT [address], [place], [place] [id number] [phone] Serum Bordetella 08/06/2017 N2N/CCD Import Serum Bordetella 2.25 High 0.00-0.94 pertussis IgG pertussis IgG antibody assay antibody assay (uni (units/volume) Bordetella 08/06/2017 [facility] B. Pertussis IgM < 1.0 index 0.0-0.9 9 Pertussis,Igm [address], [place] [address] [phone] Serum or plasma 08/05/2017 N2N/CCD Import Serum or plasma 2.5 High 1.8- 2.4 magnesium magnesium measurement measurement (mass/volume (mass/volume) Legionella 08/05/2017 N2N/CCD Import Legionella Negative Negative pneumophila 1 Ag pneumophila 1 Ag [Presence] in [Presence] in Urine Urine Aerobic bacterial 08/05/2017 N2N/CCD Import Aerobic Organism: respiratory bacterial Respiratory culture respiratory Dayna culture Aerobic bacterial respiratory culture Organism: Yeast Like Organism Manual blood 08/04/2017 N2N/CCD Import Manual blood 6 0-10 monocytes/100 monocytes/100 leukocytes leukocytes Manual blood 08/04/2017 N2N/CCD Import Manual blood 70 33-73 segmented segmented neutrophils/100 neutrophils/100 leukocytes leukocytes Nitrite Ur Ql 08/04/2017 N2N/CCD Import Nitrite Ur Ql Negative Negative Strip.auto Strip.auto Prot Ur 08/04/2017 N2N/CCD Import Prot Ur Negative Negative Strip.auto-mCnc Strip.auto-mCnc Serum or plasma 08/04/2017 N2N/CCD Import Serum or plasma 3.9 3.4-5.0 albumin albumin measurement measurement (mass/volume) (mass/volume) Serum or plasma 08/04/2017 N2N/CCD Import Serum or plasma 102 45-117 alkaline alkaline phosphatase phosphatase measurement ( measurement (enzymatic activity/volume) Serum or plasma 08/04/2017 N2N/CCD Import Serum or plasma 21 15-37 aspartate aspartate aminotransferase aminotransferase measure measurement (enzymatic activity/volume) Serum or plasma 08/04/2017 N2N/CCD Import Serum or plasma 1.7 0.4-1.9 lactate lactate measurement measurement (moles/volume) (moles/volume) Serum or plasma 08/04/2017 N2N/CCD Import Serum or plasma 8.3 High 6.4- 8.2 protein protein measurement measurement (mass/volume) (mass/volume) Serum or plasma 08/04/2017 N2N/CCD Import Serum or plasma 0.5 0.2-1.0 total bilirubin total bilirubin measurement (mass/ measurement (mass/volume) Urine appearance 08/04/2017 N2N/CCD Import Urine appearance Clear Clear determination determination Urine glucose 08/04/2017 N2N/CCD Import Urine glucose Negative Negative measurement by measurement by automated test automated test strip strip (mass/volume) Urine hemoglobin 08/04/2017 N2N/CCD Import Urine hemoglobin Negative Negative detection by detection by automated test automated test strip strip Urine total 08/04/2017 N2N/CCD Import Urine total Negative Negative bilirubin bilirubin detection detection by by automated test automated test strip Urobilinogen Ur 08/04/2017 N2N/CCD Import Urobilinogen Ur 0.2 0.2-1.0 Strip-aCnc Strip-aCnc pH Ur Strip.auto 08/04/2017 N2N/CCD Import pH Ur Strip.auto 6.0 Low 6.5- 7.5 Arterial blood pH 08/04/2017 N2N/CCD Import Arterial blood pH 7.46 High 7.35-7.45 measurement with measurement with patient tempera patient temperature correction Arterial blood 08/04/2017 N2N/CCD Import Arterial blood 93 90-99 oxygen saturation oxygen saturation measurement measurement Arterial blood gas 08/04/2017 N2N/CCD Import Arterial blood gas L.Rad.Art. measurement measurement Arterial blood 08/04/2017 N2N/CCD Import Arterial blood 26 22-26 bicarbonate bicarbonate measurement measurement (moles/volu (moles/volume) Arterial blood 08/04/2017 N2N/CCD Import Arterial blood base 2 -2-2 base excess excess determination by determination by calcul calculation Legionella Culture 08/04/2017 [facility] Legionella Culture No 10, [address] Legionella [address] [place] [address] sp <SEE [phone] NOTE> Rapid influenza B 08/04/2017 N2N/CCD Import Rapid influenza B Negative ( Negative antigen detection antigen detection ) Influenza virus A 08/04/2017 N2N/CCD Import Influenza virus A Negative ( Negative antigen detection antigen detection ) Arterial blood 08/04/2017 N2N/CCD Import Arterial blood 37 35-45 partial pressure partial pressure of of carbon dioxide carbon dioxide with temperature correction Arterial blood 08/04/2017 N2N/CCD Import Arterial blood 67 Low 80-105 partial pressure partial pressure of of oxygen adjusted oxygen adjusted to patient's actualtemperature Determination of 08/04/2017 N2N/CCD Import Determination of 21 20-101 inhaled oxygen inhaled oxygen concentration (vol concentration (volume fraction) Unloinc 08/04/2017 N2N/CCD Import Unloinc Room Air Unloinc Yes Manual blood 08/04/2017 N2N/CCD Import Manual blood 20 20-42 lymphocytes/100 lymphocytes/100 leukocytes leukocytes Manual blood band 08/04/2017 N2N/CCD Import Manual blood band 2 0-8 neutrophils neutrophils form/100 form/100 leukocytes leukocytes Leukocyte esterase 08/04/2017 N2N/CCD Import Leukocyte esterase Negative Negative Ur Ql Strip.auto Ur Ql Strip.auto Ketones Ur 08/04/2017 N2N/CCD Import Ketones Ur Negative Negative Strip.auto-mCnc Strip.auto-mCnc Globulin Ser 08/04/2017 N2N/CCD Import Globulin Ser 4.4 High 1.9-4.3 Calc-mCnc Calc-mCnc Eosinophil % 08/04/2017 N2N/CCD Import Eosinophil % 2 0-5 Color Ur 08/04/2017 N2N/CCD Import Color Ur Yellow Yellow Blood total cell 08/04/2017 N2N/CCD Import Blood total cell 100 count count Blood platelet 08/04/2017 N2N/CCD Import Blood platelet Normal adequacy detection adequacy detection by light microsc by light microscopy Albumin/Glob SerPl 08/04/2017 N2N/CCD Import Albumin/Glob SerPl 0.9 Alt SerPl-cCnc 08/04/2017 N2N/CCD Import Alt SerPl-cCnc 29 12-78 Anaerobic blood 08/04/2017 N2N/CCD Import Anaerobic blood No Growth: culture culture Final Report Aerobic blood 08/04/2017 N2N/CCD Import Aerobic blood No Growth: culture culture Final Report Lactic Acid 04/26/2017 [facility] Lactic Acid 0.5 mmol/L N 0.4-1.9 12 [address] [place] [address] [phone] Lab Reflex >2.0 for Sepsis? N Basic Metabolic Panel 04/26/2017 [facility] Glucose 128 mg/dL High 74-106 [address] [place], [place] [id number] [phone] BUN 11 mg/dL N 7-18 Creatinine 0.7 mg/dL N 0.6-1.3 Glom Filtration Rate, Estimate >60 mL/min >60 If >60 mL/min >60 13 BUN/Creat 15.7 ratio Sodium 138 mmol/L N 136-145 Potassium 4.3 mmol/L N 3.5-5.1 Chloride 105 mmol/L N 98-107 Carbon Dioxide 29 mmol/L N 21-32 Anion Gap 4 mEq/L Low 8-16 Calcium 9.4 mg/dL N 8.5-10.1 CBC 04/26/2017 [facility] White Blood Count 7.2 K/uL N 3.1-10.7 [address] [place] [address] [phone] Red Blood Count 4.24 M/uL N 3.90-5.40 Hemoglobin 13.6 gm/dL N 11.6-15.8 Hematocrit 41.7 % N 36.0-46.1 Mean Cell Volume 98.3 fl N 80.9-99.0 Mean Corpuscular HGB 32.1 pg N 25.9-32.7 Mean Corpuscular HGB Conc 32.6 g/dL N 30.8-34.3 Platelet Count 259 K/uL N 150-400 Red Cell Distri Width %CV 13.0 % N 11.7-14.4 Mean Platelet Volume 9.8 fL N 8.9-12.4 Serum or plasma 04/24/2017 N2N/CCD Import Serum or plasma lipase 73 56- 289 lipase measurement (enzymatic measurement activity/volume) (enzymatic acti CBC 04/23/2017 [facility] White Blood Count 9.1 K/uL N 3.1-10.7 14 [address] [place] [address] [phone] Red Blood Count 4.15 M/uL N 3.90-5.40 Hemoglobin 13.5 gm/dL N 11.6-15.8 Hematocrit 40.8 % N 36.0-46.1 Mean Cell Volume 98.3 fl N 80.9-99.0 Mean Corpuscular HGB 32.5 pg N 25.9-32.7 Mean Corpuscular HGB Conc 33.1 g/dL N 30.8-34.3 Platelet Count 258 K/uL N 150-400 Red Cell Distri Width %CV 13.3 % N 11.7-14.4 Mean Platelet Volume 9.9 fL N 8.9-12.4 Serum or plasma 04/23/2017 N2N/CCD Import Serum or plasma 3.6 2.5-4.0 phosphate phosphate measurement measurement (mass/volume (mass/volume) CBS W/Automated 04/22/2017 [facility] White Blood Count 10.5 K/uL N 3.1-10.7 Diff [address] [place] [address] [phone] Red Blood Count 4.29 M/uL N 3.90-5.40 Hemoglobin 13.9 gm/dL N 11.6-15.8 Hematocrit 42.8 % N 36.0-46.1 Mean Cell Volume 99.8 fl High 80.9-99.0 Mean Corpuscular HGB 32.4 pg N 25.9-32.7 Mean Corpuscular HGB Conc 32.5 g/dL N 30.8-34.3 Platelet Count 281 K/uL N 150-400 Red Cell Distri Width SD 48.6 fl High 3-47 Red Cell Distri Width %CV 13.6 % N 11.7-14.4 Mean Platelet Volume 9.9 fL N 8.9-12.4 Neut% 64.1 % N 40.4-72.8 Lymph % 25.0 % N 20.0-42.0 [place] % 10.0 % N 4.3-13.2 Eo% 0.7 % N 0.0-6.6 Bas% 0.2 % N 0.0-1.1 Neut# 6.71 K/uL N 1.8-7.0 Lymph # 2.61 K/uL N 1.0-4.0 [place] # 1.04 K/uL High 0.3-0.9 Eos # 0.07 K/uL N 0.0-0.5 Baso # 0.02 K/uL N 0.0-0.1 Basic Metabolic Panel 04/22/2017 [facility] Glucose 102 mg/dL N 74-106 [address] [place] [address] [phone] BUN 16 mg/dL N 7-18 Creatinine 0.8 mg/dL N 0.6-1.3 Glom Filtration Rate, Estimate >60 mL/min >60 If >60 mL/min >60 15 BUN/Creat 20.0 ratio Sodium 142 mmol/L N 136-145 Potassium 4.7 mmol/L 3.5-5.1 Chloride 107 mmol/L N 98-107 Carbon Dioxide 32 mmol/L N 21-32 Anion Gap 3 mEq/L Low 8-16 Calcium 9.1 mg/dL N 8.5-10.1 Smear For Eos 09/06/2016 [facility] Eosinophil Smear FEW 16 [address] [place] [address] [phone] Nasal WBC MODERATE Smear Source: SPUTUM Specimen Source: SPUTUM CBS W/Automated 03/22/2016 [facility] White Blood 8.9 K/uL N 3.1-10.7 17 Diff [address] [place] [place] [address] [phone] Red Blood Count 4.18 M/uL N 3.90-5.40 Hemoglobin 13.1 gm/dL N 11.6-15.8 Hematocrit 41.4 % N 36.0-46.1 Mean Cell Volume 99.0 fl N 80.9-99.0 Mean Corpuscular HGB 31.3 pg N 25.9-32.7 Mean Corpuscular HGB Conc 31.6 g/dL N 30.8-34.3 Platelet Count 250 K/uL N 155-360 Red Cell Distri Width SD 45.1 fl N 3-47 Red Cell Distri Width %CV 12.6 % N 11.7-14.4 Mean Platelet Volume 9.8 fL N 8.9-12.4 Neut% 74.0 % High 40.4-72.8 Lymph % 19.8 % N 17.0-46.1 [place] % 5.8 % N 4.3-13.2 Eo% 0.2 % N 0.0-6.6 Bas% 0.2 % N 0.0-1.1 Neut# 6.57 K/uL N 1.8-7.0 Lymph # 1.76 K/uL Low 1.8-7.0 [place] # 0.52 K/uL N 0.3-0.9 Eos # 0.02 K/uL N 0.0-0.5 Baso # 0.02 K/uL N 0.0-0.1 Basic Metabolic Panel 03/22/2016 [facility] Glucose 128 mg/dL High 74-106 [address] [place] [address] [phone] BUN 12 mg/dL N 7-18 Creatinine 0.8 mg/dL N 0.6-1.3 Glom Filtration Rate, Estimate >60 mL/min N >60 If >60 mL/min N >60 18 BUN/Creat 15.0 ratio N Sodium 138 mmol/L N 136-145 Potassium 3.9 mmol/L N 3.5-5.1 Chloride 105 mmol/L N 98-107 Carbon Dioxide 28 mmol/L N 21-32 Anion Gap 5 mEq/L Low 8-16 Calcium 8.8 mg/dL N 8.5-10.1 Is Patient Fasting? Non-Fasting Urine Culture 03/20/2016 [facility] Urine Culture NO GROWTH: FINAL [address] <SEE NOTE> [place] [id number] [phone] Troponin-I 03/20/2016 [facility] Troponin-I < 0.015 ng/mL N [address] [place] [address] [phone] Is Patient Fasting? Unknown CK 03/20/2016 [facility] CK 99 U/L N 26-192 [address] [place] [address] [phone] Is Patient Fasting? Unknown Comprehensive Metabolic 03/20/2016 [facility] Glucose 92 mg/dL N 74-106 Panel [address] [place] [address] [phone] BUN 13 mg/dL N 7-18 Creatinine 0.7 mg/dL N 0.6-1.3 Glom Filtration Rate, Estimate >60 mL/min N >60 If >60 mL/min N >60 21 BUN/Creat 18.5 ratio N Sodium 138 mmol/L N 136-145 Potassium 4.2 mmol/L N 3.5-5.1 Chloride 103 mmol/L N 98-107 Carbon Dioxide 25 mmol/L N 21-32 Anion Gap 10 mEq/L N 8-16 Calcium 9.3 mg/dL N 8.5-10.1 Total Protein 7.9 g/dL N 6.4-8.2 Albumin 4.4 g/dL N 3.4-5.0 Globulin 3.5 g/dL N 1.9-4.3 Alb/Glob 1.3 ratio N Bilirubin,Total 0.6 mg/dL N 0.2-1.0 Sgot/Ast 25 U/L N 15-37 SGPT/Alt 32 U/L N 12-78 Alkaline Phosphatase 85 U/L N 45-117 Is Patient Fasting? Unknown 1 DYSPNEA, BRONCHOSPASM 2 Note: Persistent reduction for 3 months or more in an eGFR <60 mL/min/1.73 m2 defines CKD. Patients with eGFR values >/=60 mL/min/1.73 m2 may also have CKD if evidence of persistent proteinuria is present. The original MDRD equation for estimated GFR is not valid for patients less than 18 years of age. Additional information may be found at [email or web address]. 3 Note: Persistent reduction for 3 months or more in an eGFR <60 mL/min/1.73 m2 defines CKD. Patients with eGFR values >/=60 mL/min/1.73 m2 may also have CKD if evidence of persistent proteinuria is present. The original MDRD equation for estimated GFR is not valid for patients less than 18 years of age. Additional information may be found at [email or web address]. 4 Instrument flagged sample for slide review. Less than 10% Bands seen, no other immature WBC's seen. RBC morphology essentially normal. Platelet estimate= Slight Increase 5 Note: Persistent reduction for 3 months or more in an eGFR <60 mL/min/1.73 m2 defines CKD. Patients with eGFR values >/=60 mL/min/1.73 m2 may also have CKD if evidence of persistent proteinuria is present. The original MDRD equation for estimated GFR is not valid for patients less than 18 years of age. Additional information may be found at [email or web address]. 6 Note: Persistent reduction for 3 months or more in an eGFR <60 mL/min/1.73 m2 defines CKD. Patients with eGFR values >/=60 mL/min/1.73 m2 may also have CKD if evidence of persistent proteinuria is present. The original MDRD equation for estimated GFR is not valid for patients less than 18 years of age. Additional information may be found at [email or web address]. 7 This test was developed and its performance characteristics determined by [employer]. It has not been cleared or approved by the U.S. Food and Drug Administration. The FDA has determined that such clearance or approval is not necessary. This test is used for clinical purposes. It should not be regarded as investigational or research. Performed at: [address] [id number] Live Study Manager: Shiva Cruz MD, Phone: [phone] 8 Negative <0.95 Equivocal 0.95 - 1.04 Positive >1.04 9 Negative <1.0 Borderline 1.0 - 1.1 Positive >1.1 Performed at: - [facility] [address] [id number] Live Study Manager: Shiva Cruz MD, Phone: [phone] [employer] AUTH 08/15 REX 11 No Legionella species isolated. Performed at: - [facility] [address] [id number] Live Study Manager: Erum Jean MD, Phone: [phone] 12 LOW BACK PAIN 13 Note: Persistent reduction for 3 months or more in an eGFR <60 mL/min/1.73 m2 defines CKD. Patients with eGFR values >/=60 mL/min/1.73 m2 may also have CKD if evidence of persistent proteinuria is present. The original MDRD equation for estimated GFR is not valid for patients less than 18 years of age. Additional information may be found at [email or web address]. 14 INTRACTIBLE BACK PAIN 15 Note: Persistent reduction for 3 months or more in an eGFR <60 mL/min/1.73 m2 defines CKD. Patients with eGFR values >/=60 mL/min/1.73 m2 may also have CKD if evidence of persistent proteinuria is present. The original MDRD equation for estimated GFR is not valid for patients less than 18 years of age. Additional information may be found at [email or web address]. 16 J41.0 SIMPLE CHRONIC BRONCHITIS 17 INTRACTABLE R FLANK PAIN 18 Note: Persistent reduction for 3 months or more in an eGFR <60 mL/min/1.73 m2 defines CKD. Patients with eGFR values >/=60 mL/min/1.73 m2 may also have CKD if evidence of persistent proteinuria is present. The original MDRD equation for estimated GFR is not valid for patients less than 18 years of age. Additional information may be found at [email or web address]. 19 NO GROWTH: FINAL REPORT 20 0.0 - 0.045 ng/mL: Normal 0.046 - 0.5 ng/mL: Suggestive 0.6 - 1.5 ng/mL: Consistent 21 Note: Persistent reduction for 3 months or more in an eGFR <60 mL/min/1.73 m2 defines CKD. Patients with eGFR values >/=60 mL/min/1.73 m2 may also have CKD if evidence of persistent proteinuria is present. The original MDRD equation for estimated GFR is not valid for patients less than 18 years of age. Additional information may be found at [email or web address]. Procedures Date Code Description Status 04/30/2018 83323 Radiology, Foot, Complete-3 Views Completed 04/08/2018 16358 ECHO Transthoracic Inc Performance Continuous Completed Electrocardio 03/21/2018 11812 EKG-Tracing And Report Completed 01/07/2018 18357 Event Monitor Inter/Review Only Completed 04/24/2017 09611 EGD With Biopsy Completed 08/30/2016 28184 Close Lacrimal Punctum, Plug Completed 08/30/2016 05045 Close Lacrimal Punctum, Plug Completed 08/02/2016 12827 Eye Exam Est Patient Comprehensive Completed 04/25/2016 45355 Eye Exam Est Patient Comprehensive Completed 03/03/2016 66775 Eye Exam New Patient Comprehensive Completed 06/01/2015 53214 Bronchospasm Provocation Evaluation Multi Spirometric Completed Determinati 06/01/2015 73051 Spirometry Completed 08/20/2013 91801 Stress Test Interpre And Report Only Completed 08/20/2013 26604 Stress Test Physician Super Only Completed 08/20/2013 16638 Stress Test Physician Super Only Completed 08/20/2013 75382 Myocardial Imaging Tomographic Multiple Study AT Rest Or Completed Stress 02/26/2009 30942 Echocardiogram Complete Completed 12/18/2008 13093 Asp./Injection major joint Completed 04/21/2008 58786 Stress Test Interpre And Report Only Completed 04/21/2008 00310 Ejection Fraction Completed 04/21/2008 48077 Myocardial Wall Motion Completed 04/21/2008 91291 Cardiolite Stress/Rest Spect Completed 03/25/2008 06038 EKG-Tracing And Report Completed 03/12/2008 27764 Echocariogram 2D Complete Completed 03/12/2008 21722 Doppler Echocardiogram Complete Completed 03/12/2008 44132 Doppler ECHO Color Flow Mapping Completed 02/25/2008 53033 Radiology, Shoulder: Two Views (Sso) Completed 02/25/200823196 Asp./Injection major joint Completed 01/20/200873622 Asp./Injection major joint Completed 12/30/2007 Asp/Injection small joint/bursa (ie-fingers,toes) Completed 05/09/2007 Asp/Injection small joint/bursa (ie-fingers,toes) Completed 04/09/2007 Aspiration/Injection joint Completed intermediate(wrist/ankle/elbow/olbursa 12/27/2004 Asp./Injection major joint Completed Encounters Type Date Location Provider Dx Diagnosis Office Visit 07/24/2018 Cardiology Office Mireille Shields MD R60.0 Localized edema 11:15a I10 Essential (primary) hypertension J20.8 Acute bronchitis due to other specified organisms Office Visit 04/30/2018 4:05p Podiatry Office Larry Santiago, M79.672 Pain in left DPM foot M20.11 Hallux valgus (acquired), right foot M20.12 Hallux valgus (acquired), left foot M81.0 Age-related osteoporosis w/o current pathological fracture 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, right ankle and foot M19.072 Primary osteoarthritis, left ankle and foot Office Visit 04/09/2018 8:40a Cardiology Office Allen, R06.02 Shortness of Marlyss B., PA breath R60.0 Localized edema I10 Essential (primary) hypertension E78.5 Hyperlipidemia, unspecified Office Visit 03/21/2018 1:00p Cardiology Office Allen, R06.02 Shortness of Marlyss B., PA breath Z01.810 Encounter for preprocedural cardiovascular examination R07.9 Chest pain, unspecified R60.0 Localized edema I10 Essential (primary) hypertension E78.5 Hyperlipidemia, unspecified Office Visit 11/08/2017 2:30p Pulmonology Crispin Dhillon MD J82 Pulmonary eosinophilia, not elsewhere classified K21.9 Gastro-esophageal reflux disease without esophagitis J30.89 Other allergic rhinitis R25.1 Tremor, unspecified Office Visit 08/16/2017 3:45p Pulmonology Crispin Dhillon MD J82 Pulmonary eosinophilia, not elsewhere classified K21.9 Gastro-esophageal reflux disease without esophagitis J30.89 Other allergic rhinitis A37.00 Whooping cough due to Bordetella pertussis without pneumonia Office Visit 05/08/2017 2:30p Pulmonology Crispin Dhillon MD J82 Pulmonary eosinophilia, not elsewhere classified K21.9 Gastro-esophageal reflux disease without esophagitis J41.0 Simple chronic bronchitis J30.89 Other allergic rhinitis R53.83 Other fatigue Office Visit 12/28/2016 2:30p Pulmonology Crispin Dhillon MD J82 Pulmonary eosinophilia, not elsewhere classified R10.11 Right upper quadrant pain K21.9 Gastro-esophageal reflux disease without esophagitis Office Visit 08/31/2016 4:00p Pulmonology Crispin Dhillon MD J41.0 Simple chronic bronchitis J30.89 Other allergic rhinitis F17.211 Nicotine dependence, cigarettes, in remission K21.9 Gastro-esophageal reflux disease without esophagitis Office Visit 05/10/2016 1:45p Pulmonology Crispin Dhillon MD J41.0 Simple chronic bronchitis J30.89 Other allergic rhinitis F17.211 Nicotine dependence, cigarettes, in remission Office Visit 11/29/2015 2:45p Pulmonology Crispin Dhillon MD J41.0 Simple chronic bronchitis K21.9 Gastro-esophageal reflux disease without esophagitis J30.89 Other allergic rhinitis F17.211 Nicotine dependence, cigarettes, in remission Office Visit 06/29/2015 1:45p Pulmonology Crispin Dhillon MD J41.0 Simple chronic bronchitis K21.9 Gastro-esophageal reflux disease without esophagitis J30.89 Other allergic rhinitis Office Visit 06/15/2015 2:19p [facility] Mike Dowdeed, M25.532 Pain in left Medical [place] M.Robert wrist Z91.81 History of falling Office Visit 05/26/2015 1:00p Pulmonology Crispin Dhillon MD R06.02 Shortness of breath R05 Cough M25.562 Pain in left knee Office Visit 08/05/2013 [facility] Jevon Zapata 786.50 Pain Chest 11:51a [facility] JVineet, DO Unspec Office Visit 02/26/2009 Cardiology Office Aleks Mckeon 786.05 Shortness Of 11:00a Chapito Khanna, FAC Breath Office Visit 12/23/2008 Surgical Office Jessie, 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 Trachea Bronchus & Lung Office Visit 05/18/2008 Orthopaedic Edilia Rowe, 726.10 Bursae & Tendon 9:00a Office MD Disorders Shoulder Region Unspec 840.4 Sprains & Strains Rotator Cuff (Capsule) Office Visit 05/07/2008 10:45a Orthopaedic Office Edilia Rowe 719.41 Pain Joint MD Yasmine Shoulder Region 726.10 Bursae & Tendon Disorders Shoulder Region Unspec Office Visit 04/27/2008 Edilia Holley 715.94 Osteoarthrosis 9:15a Office MD Yasmine Unspec Genlzd Or Localzd Hand 726.10 Bursae & Tendon Disorders Shoulder Region Unspec 715.11 Osteoarthrosis Localized Prim Shoulder Region Office Visit 04/22/2008 10:45a Cardiology Office Aleks Mckeon 786.05 Shortness Of Lee Khanna., [facility] Breath Office Visit 03/25/2008 9:00a Cardiology Office Aleks Mckeon 786.05 Shortness Of Lee Khanna., [facility] Breath 786.59 Pain Chest Other 451.19 Phlebitis & Thrombophlebitis Lower Extremity Other 272.4 Hyperlipidemia Other Unspec Office Visit 02/25/2008 Edilia Holley 715.94 Osteoarthrosis 10:15a Office MD Yasmine Unspec Genlzd Or Localzd Hand 726.10 Bursae & Tendon Disorders Shoulder Region Unspec Office Visit 12/30/2007 Edilia Holley 715.94 Osteoarthrosis 12:30p Office MD Yasmine Unspec Genlzd Or Localzd Hand Office Visit 05/09/2007 Edilia Holley 719.44 Pain Joint Hand 10:45a Office MD Yasmine 715.94 Osteoarthrosis Unspec Genlzd Or Localzd Hand Office Visit 04/09/2007 9:15a Orthopaedic Office Edilia Rowe 719.44 Pain Joint MD Yasmine Hand 715.94 Osteoarthrosis Unspec Genlzd Or Localzd Hand Plan of Treatment Future Appointment(s):10/01/2018 11:00 am - Dottie Madison PA at [facility]/ 30/2019 - Crispin Dhillon MDJ41.0 Simple chronic bronchitisNew Medication: Gabapentin 100 mg - take 3 tablets twice a day.Comments:Increase gabapentin back to 300 mg twice a day. Call me back in 7 days and let me know how the coughis doing since this can be increased even further.Follow up:1 llnnkR85.89 Other allergic rhinitisComments:Still symptomatic despite aggressive treatment. Advised to try neti pot. Continue with montelukast, loratadine, and azelastine.K21.9 Gastro-esophageal reflux disease without esophagitisComments: Waiting on 24 hour esophageal pH monitoring, scheduled for this Sunday.
[2018-09-18 19:10] VITALS: BP 169/84
--- NOTE | 2018-09-18 19:45 | UC ---
Lower Extremity/Ankle HPI - HPI Summary HPI Summary: Pt just returned from a round trip visit to [place]. C/o left calf discomfort. Hx of DVT no CP or SOB - History of Current Complaint Chief Complaint: UCGeneralIllness Stated Complaint: B/J LEG AND ANKLE SWELLING Time Seen by Provider: 09/18/18 19:13 Pain Intensity: 0 - Allergies/Home Medications Allergies/Adverse Reactions: Allergies Allergy/AdvReac Type Severity Reaction Status Date / Time No Known Allergies Allergy Verified 09/18/18 19:10 Home Medications: Home Medications Albuterol 2.5MG/3ML (0.083%)* [Ventolin 2.5 MG/3 ML NEB.LUIGI*] 2.5 mg INH Q4H PRN 09/18/18 [History Confirmed 09/18/18] Albuterol HFA INHALER* [Ventolin HFA Inhaler*] 2 puff INH Q4H PRN 09/18/18 [ History Confirmed 09/18/18] Azelastine 0.15% NASAL(NF) [Astepro 0.15% NASAL (NF)] 2 spray NASAL DAILY [History Confirmed 09/18/18] Fluticasone NASAL SPRAY 50MCG* [Flonase NASAL SPRAY 50MCG*] 2 spray BOTH NARES DAILY 09/18/18 [History Confirmed 09/18/18] PMH/Surg Hx/FS Hx/Imm Hx Previously Healthy: Yes Endocrine History: Dyslipidemia Cardiovascular History: Hypertension, Deep Vein Thrombosis Respiratory History: Asthma - Surgical History Surgical History: Yes Surgery Procedure, Year, and Place: SKIN CA -; APPENDECTOMY; TUBAL LIGATION; BASAL JOINT REPAIR- Rt HAND; LEFT knee - Family History Known Family History: Positive: Hypertension - Social History Alcohol Use: Rare Substance Use Type: None Smoking Status (MU): Former Smoker Length of Time of Smoking/Using Tobacco: ~1 PPD x 25 Years When Did the Patient Quit Smoking/Using Tobacco: ~1975 - Immunization History Most Recent Influenza Vaccination: UTD 2016 Most Recent Tetanus Shot: UNK Most Recent Pneumonia Vaccination: UTD Review of Systems All Other Systems Reviewed And Are Negative: Yes Constitutional: Positive: Negative Skin: Positive: Negative Eyes: Positive: Negative ENT: Positive: Negative Respiratory: Positive: Negative Cardiovascular: Positive: Negative Gastrointestinal: Positive: Negative Genitourinary: Positive: Negative Motor: Positive: Negative Neurovascular: Positive: Negative Musculoskeletal: Positive: Edema Neurological: Positive: Negative Psychological: Positive: Negative Physical Exam Triage Information Reviewed: Yes Appearance: Well-Appearing, No Pain Distress, Well-Nourished Vital Signs: Initial Vital Signs Temp 97.2 F 09/18/18 19:02 Pulse 73 09/18/18 19:02 Resp 18 09/18/18 19:02 BP 169/84 09/18/18 19:02 Pulse Ox 95 09/18/18 19:02 Vital Signs Reviewed: Yes Eyes: Positive: Conjunctiva Clear ENT: Positive: Pharynx normal. Negative: Nasal congestion, Nasal drainage, Trismus, Muffled voice, Hoarse voice Neck: Positive: Supple, Nontender, No Lymphadenopathy Respiratory: Positive: Lungs clear, Normal breath sounds, No respiratory distress, No accessory muscle use Cardiovascular: Positive: RRR, No Murmur Musculoskeletal: Positive: Edema @ - ++ pretibial edema, tender left calf, not warm Psychological Exam: Normal Skin Exam: Normal Lower Extremity Course/Dx - Differential Dx/Diagnosis Provider Diagnosis: Bilateral leg edema, Pain of left calf Discharge - Sign-Out/Discharge Documenting (check all that apply): Patient Departure All imaging exams completed and their final reports reviewed: No Studies - Discharge Plan Condition: Stable Disposition: HOME-RECOMMEND TO ED Referrals: Earl García DO [Primary Care Provider] - Additional Instructions: To the ER for evaluation I spoke to Rekha Lam FITNESS MANAGER They are expecting you - Billing Disposition and Condition Condition: STABLE Disposition: Home-Recommend to ED
== END 2018-09-18 19:45 | disposition home health service (06) ==
LOC: UCCORT 18:17
DX: R60.0 Localized edema (principal); M79.662 Pain in left lower leg; I10 Essential (primary) hypertension; Z86.718 Personal history of other venous thrombosis and embolism; J45.909 Unspecified asthma, uncomplicated; Z79.899 Other long term (current) drug therapy; Z87.891 Personal history of nicotine dependence
CPT/HCPCS: 99212; G0463